=== PATIENT | female | born 1935 ===

== ENCOUNTER 2017-09-02 10:29 | Inpatient (IN) | payer OTHER ==
[~2017-09-02] VITALS: Ht 152.4 cm; Wt 68.2 kg
[~2017-09-02 10:29] MED LIST: ANT12.5 PO; BACLOFEN10 MG PO; ENALAPRIL MALEA10 MG PO; HYDROCHLOROTHIA25 MG PO; LAC PO; LOVASTATIN40 MG PO; METFORMIN ER500 M1 PO; ROC1I IV; TRAMADOL HCL50 MG PO; VOL25 PO; XANAX0.5 MG PO
[2017-09-02 11:14] LABS: BASOPHIL % 0.2 % (0-2); PLATELET COUNT 323 x10^3mcL (130-400); RED CELL DISTRIBUTION WIDTH 12.8 % (11.5-14.5)
[2017-09-02] MEDS ORDERED: FLORANEX1 CT2 PO (11:20)
[2017-09-02 11:38] LABS: CALCIUM 9.6 mg/dL (8.5-10.1); CARBON DIOXIDE 26.5 mmol/L (21-32); CHLORIDE SERUM 98 mmol/L (98-107); CREATININE SERUM 1.1 mg/dL (0.6-1.0); GLUCOSE SERUM 113 mg/dL (74-106); SODIUM SERUM 138 mmol/L (136-145)
[2017-09-02 11:43] LABS: POTASSIUM SERUM 2.9 mmol/L (3.5-5.1); TOTAL PROTEIN, SERUM 7.9 g/dL (6.4-8.2)
[2017-09-02 11:44] LABS: ALBUMIN 3.2 g/dL (3.4-5.0); ALKALINE PHOSPHATASE 75 U/L (46-116); ALT/SGPT 19 U/L (14-59); AST/SGOT 22 U/L (15-37); BILIRUBIN TOTAL 0.95 mg/dL (0.20-1.00); CHOLESTEROL 115 mg/dL (<200); LIPASE 86 IU/L (73-393); MAGNESIUM 1.1 mg/dL (1.8-2.4); PHOSPHOROUS 2.9 mg/dL (2.5-4.9)
[2017-09-02 12:01] LABS: HDL CHOLESTEROL 62 mg/dL (40-60)
[2017-09-02 13:17] LABS: CHOLESTEROL/HDL RATIO 1.9
[2017-09-02 14:31] VITALS: BP 138/79
[2017-09-02 15:39] VITALS: BP 138/79
[2017-09-02 16:07] LABS: UA SPECIFIC GRAVITY 1.015 (1.005-1.035); microscopic required? YES; urine erythrocyte 1+ (NEGATIVE)
[2017-09-02 18:17] VITALS: BP 146/79
[2017-09-02 19:15] LABS: CALCIUM 8.9 mg/dL (8.5-10.1); CARBON DIOXIDE 24.8 mmol/L (21-32); CHLORIDE SERUM 102 mmol/L (98-107); GLUCOSE SERUM 74 mg/dL (74-106); SODIUM SERUM 141 mmol/L (136-145)
[2017-09-02 19:21] LABS: POTASSIUM SERUM 2.9 mmol/L (3.5-5.1)
[2017-09-02 20:31] VITALS: BP 120/62
[2017-09-03 05:53] VITALS: BP 122/62
[2017-09-03 07:36] LABS: BASOPHIL % 0.5 % (0-2); PLATELET COUNT 252 x10^3mcL (130-400); RED CELL DISTRIBUTION WIDTH 13.7 % (11.5-14.5)
[2017-09-03 08:09] LABS: CALCIUM 7.9 mg/dL (8.5-10.1); CARBON DIOXIDE 24.2 mmol/L (21-32); CHLORIDE SERUM 107 mmol/L (98-107); GLUCOSE SERUM 208 mg/dL (74-106); MAGNESIUM 1.5 mg/dL (1.8-2.4); POTASSIUM SERUM 3.8 mmol/L (3.5-5.1); SODIUM SERUM 140 mmol/L (136-145)
[2017-09-03 09:45] VITALS: BP 106/52
[2017-09-03 14:32] VITALS: BP 126/62
[2017-09-03 17:52] VITALS: BP 169/83
[2017-09-03 22:10] VITALS: BP 183/9
[2017-09-03 23:50] VITALS: BP 137/66
[2017-09-04 05:25] VITALS: BP 126/58
[2017-09-04 07:01] LABS: CALCIUM 8.2 mg/dL (8.5-10.1); CARBON DIOXIDE 26.5 mmol/L (21-32); CHLORIDE SERUM 107 mmol/L (98-107); GLUCOSE SERUM 136 mg/dL (74-106); MAGNESIUM 2.1 mg/dL (1.8-2.4); PHOSPHOROUS 2.9 mg/dL (2.5-4.9); POTASSIUM SERUM 3.2 mmol/L (3.5-5.1); SODIUM SERUM 141 mmol/L (136-145)
[2017-09-04 07:06] LABS: BASOPHIL % 0.4 % (0-2); PLATELET COUNT 345 x10^3mcL (130-400); RED CELL DISTRIBUTION WIDTH 13.2 % (11.5-14.5)
[2017-09-04 09:44] VITALS: BP 121/63
[2017-09-04 13:40] VITALS: BP 118/64
[2017-09-04 16:13] VITALS: BP 134/63
[2017-09-04 20:16] VITALS: BP 124/62
[2017-09-05 05:26] VITALS: BP 109/50
[2017-09-05 06:19] LABS: BASOPHIL % 0.4 % (0-2); PLATELET COUNT 264 x10^3mcL (130-400); RED CELL DISTRIBUTION WIDTH 13.7 % (11.5-14.5)
[2017-09-05 06:27] LABS: CALCIUM 8.2 mg/dL (8.5-10.1); CARBON DIOXIDE 27.6 mmol/L (21-32); CHLORIDE SERUM 112 mmol/L (98-107); GLUCOSE SERUM 78 mg/dL (74-106); MAGNESIUM 1.5 mg/dL (1.8-2.4); PHOSPHOROUS 2.3 mg/dL (2.5-4.9); POTASSIUM SERUM 3.6 mmol/L (3.5-5.1); SODIUM SERUM 144 mmol/L (136-145)
[2017-09-05 09:25] VITALS: BP 138/68
[2017-09-05 14:39] VITALS: BP 120/60
[2017-09-05 17:09] VITALS: BP 143/66
[2017-09-05 20:52] VITALS: BP 138/75
[2017-09-06 05:37] VITALS: BP 123/61
[2017-09-06 06:52] LABS: CALCIUM 8.1 mg/dL (8.5-10.1); CARBON DIOXIDE 27.6 mmol/L (21-32); CHLORIDE SERUM 111 mmol/L (98-107); CREATININE SERUM 0.9 mg/dL (0.6-1.0); GLUCOSE SERUM 82 mg/dL (74-106); MAGNESIUM 1.6 mg/dL (1.8-2.4); POTASSIUM SERUM 3.1 mmol/L (3.5-5.1); SODIUM SERUM 144 mmol/L (136-145)
[2017-09-06 07:03] LABS: BASOPHIL % 0.6 % (0-2); PLATELET COUNT 281 x10^3mcL (130-400); RED CELL DISTRIBUTION WIDTH 13.5 % (11.5-14.5)
[2017-09-06 09:45] VITALS: BP 142/71
[2017-09-06 10:37] VITALS: BP 142/71
[2017-09-06 13:55] VITALS: BP 145/72
[2017-09-06 17:44] VITALS: BP 146/69
[2017-09-06 21:06] VITALS: BP 144/72
[2017-09-07 05:42] VITALS: BP 140/67
[2017-09-07 07:22] LABS: BASOPHIL % 0.2 % (0-2); PLATELET COUNT 276 x10^3mcL (130-400); RED CELL DISTRIBUTION WIDTH 13.6 % (11.5-14.5)
[2017-09-07 07:26] LABS: CALCIUM 7.9 mg/dL (8.5-10.1); CARBON DIOXIDE 27.9 mmol/L (21-32); CHLORIDE SERUM 112 mmol/L (98-107); CREATININE SERUM 0.8 mg/dL (0.6-1.0); GLUCOSE SERUM 88 mg/dL (74-106); MAGNESIUM 1.2 mg/dL (1.8-2.4); POTASSIUM SERUM 3.9 mmol/L (3.5-5.1); SODIUM SERUM 144 mmol/L (136-145)
[2017-09-07 07:45] VITALS: BP 145/68
[2017-09-07 10:43] VITALS: BP 143/70
[2017-09-07] MEDS ORDERED: MECLIZINE HCL12.5 MG PO (13:11)
[2017-09-07 13:45] VITALS: BP 143/70
[2017-09-07] MEDS ORDERED: MAGNESIUM OXID400 MG PO (13:48)
== END 2017-09-07 17:55 | DRG 418 ==
LOC: ED 10:29 → DU 12:55 → MU 09-06 23:52
PROVIDERS: Emergency Medicine; ADMIT Family Medicine
PROC: 0FT44ZZ Resection of Gallbladder, Percutaneous Endoscopic Approach (ICD-10-PCS; principal; 2017-09-02)
DX: K80.00 Calculus of gallbladder with acute cholecystitis without obstruction (principal); E44.0 Moderate protein-calorie malnutrition; R65.10 Systemic inflammatory response syndrome (SIRS) of non-infectious origin without acute organ dysfunction; D68.69 Other thrombophilia; E11.9 Type 2 diabetes mellitus without complications; E87.6 Hypokalemia; E83.42 Hypomagnesemia; E86.0 Dehydration; K57.30 Diverticulosis of large intestine without perforation or abscess without bleeding; N28.1 Cyst of kidney, acquired; F41.9 Anxiety disorder, unspecified; I10 Essential (primary) hypertension; M94.0 Chondrocostal junction syndrome [Tietze]; Z68.29 Body mass index [BMI] 29.0-29.9, adult; G90.9 Disorder of the autonomic nervous system, unspecified; Z90.710 Acquired absence of both cervix and uterus; E03.9 Hypothyroidism, unspecified; M19.90 Unspecified osteoarthritis, unspecified site
CPT/HCPCS: 83880; 87046; 87046-59; 94150; 97110-GP; 97116-GP; 97530-GP; J0330; J0690; J2405; J2543; J2704; J2710; J3010; J3475; J3480; J3490; J7030; J7042; Q0092